=== PATIENT | female | born 1975 | race Two or more races ===

== ENCOUNTER 2024-03-13 02:50 | Emergency (ER) | payer OTHER ==
[~2024-03-13] VITALS: Ht 154.9 cm; Wt 141.0 kg
[2024-03-13 03:33] LABS: Basophils # (auto) 0.1 10 ^3/uL (0-0.2); Eosinophils # (auto) 0.1 10 ^3/uL (0-0.8); Eosinophils % (auto) 1.2 % (0.0-7.0); Monocytes # (auto) 0.7 10 ^3/uL (0-1.3)
[2024-03-13 03:35] LABS: Basophils % (auto) 0.7 % (0.0-2.0); Hematocrit 44.9 % (36.0-46.0); Hemoglobin 16.2 g/dL (12.2-16.2); Lymphocytes # (auto) 2.4 10 ^3/uL (0.4-5.4); Lymphocytes % (auto) 29.6 % (10.0-50.0); Mean Corpuscular Hemoglobin 35.7 pg (28.0-32.0); Mean Corpuscular Hgb Conc. 36.2 g/dL (32.0-36.0); Mean Corpuscular Volume 98.8 fL (80.0-100.0); Monocytes % (auto) 8.8 % (0.0-12.0); Neutrophils # (auto) 4.8 10 ^3/uL (1.6-8.6); Neutrophils % (auto) 59.7 % (37.0-80.0); Nucleated Red Blood Cells % 0.1 %; Red Blood Cells 4.54 10^6/uL (4.0-5.20); Red Cell Distribution Width 12.8 % (11.8-14.3)
[2024-03-13 03:47] LABS: Alanine Aminotransferase 44 U/L (7-40); Albumin 4.5 g/dL (3.2-4.8); Alkaline Phosphatase 141 U/L (46-116); Anion Gap 7 (5-15); Aspartate Aminotransferase 37 U/L (13-40); Calcium 9.8 mg/dL (8.7-10.4); Carbon Dioxide 21 mmol/L (20-30); Chloride 92 mmol/L (98-107); Glucose 105 mg/dL (74-106); Magnesium 1.7 mg/dL (1.6-2.6); Sodium 120 mmol/L (136-145)
[2024-03-13 03:48] LABS: Bilirubin, Total 0.9 mg/dL (0.2-1.0); Total Protein 7.5 g/dL (5.7-8.2)
[2024-03-13 03:55] LABS: Amphetamine Screen, Urine Neg (NEGATIVE); Barbiturate Scree,Urine Neg (NEGATIVE); Benzodiazephine Screen, Urine Neg (NEGATIVE); Cannabinoid Screen, Urine Neg (NEGATIVE); Cocaine Screen, Urine Neg (NEGATIVE); Opiate Scree,Urine Neg (NEGATIVE); Phencyclidine Screen, Urine Neg (NEGATIVE)
[2024-03-13 04:06] LABS: Urine Bacteria FEW /hpf (None Seen); Urine Blood TRACE /uL (Negative); Urine Clarity Clear (Clear); Urine Color Colorless (Yellow); Urine Protein, UAD Negative (Negative); Urine Specific Gravity 1.003 (1.001-1.035); Urine Urobilinogen Normal (Negative); Urine WBC 1 /hpf (0 - 5); Urine pH 6.5 (5.0-9.0)
[2024-03-13 04:06] LABS: BUN/Creatinine Ratio 12.2 (10.0-20.0); Blood Urea Nitrogen < 5 mg/dL (9-23)
[2024-03-13 04:15] LABS: INR 1.08 (0.9-1.15); Prothrombin Time 11.4 sec (9.3-11.8)
[2024-03-13] MEDS: chlordiazePOXIDE HCL 25 MG CAP PO ONE ×2 (05:01→13:26)
[2024-03-13] MEDS: LORazepam 0.5 MG TAB PO ONE (05:03)
[2024-03-13] MEDS: SODIUM CHLORIDE 0.9% 1,000 ML IV ONE ×2 (05:47→10:13)
[2024-03-13 05:57] VITALS: PULSE 95; RESP 20; O2SAT 98
[2024-03-13 07:45] VITALS: PULSE 90; RESP 16; O2SAT 95
[2024-03-13 08:00] VITALS: TEMP 98
[2024-03-13 12:33] LABS: Chloride 94 mmol/L (98-107); Potassium 4.3 mmol/L (3.5-5.1); Sodium 124 mmol/L (136-145)
[2024-03-13 12:34] LABS: Anion Gap 7 (5-15); Carbon Dioxide 23 mmol/L (20-30)
[2024-03-13 12:39] LABS: Glucose 111 mg/dL (74-106)
[2024-03-13 12:44] LABS: BUN/Creatinine Ratio 11.6 (10.0-20.0); Blood Urea Nitrogen < 5 mg/dL (9-23)
[2024-03-13] MEDS: SODIUM CHLORIDE 0.9% 250 ML IV ONE (13:20)
[2024-03-13 15:00] VITALS: BP 147/55; PULSE 85; RESP 16; O2SAT 91
== END 2024-03-13 15:24 | disposition home or self-care (01) ==
LOC: ER 02:50
DX: F10.239 Alcohol dependence with withdrawal, unspecified (principal); I10 Essential (primary) hypertension; Z98.890 Other specified postprocedural states
CPT/HCPCS: 36415; 71045; 80048; 80053; 80307; 81001; 83735; 84484; 85025; 85610; 85730; 93005; 96360; 96361; 99285; J7030; J7050

== ENCOUNTER 2024-04-15 14:13 | Inpatient (IN) | payer OTHER ==
[~2024-04-15] VITALS: Ht 154.9 cm; Wt 118.3 kg
[2024-04-15] MEDS: SODIUM CHLORIDE 0.9% 1,000 ML IV ONE ×3 (16:01→21:48)
[2024-04-15 16:47] LABS: Hematocrit 39.8 % (36.0-46.0); Hemoglobin 14.4 g/dL (12.2-16.2); Mean Corpuscular Hemoglobin 35.1 pg (28.0-32.0); Mean Corpuscular Hgb Conc. 36.1 g/dL (32.0-36.0); Mean Corpuscular Volume 97.2 fL (80.0-100.0); Platelet Count (auto) 177 10^3/uL (140-450); Red Cell Distribution Width 12.4 % (11.8-14.3); White Blood Cell 22.4 10^3/uL (4.4-10.8)
[2024-04-15 16:50] LABS: Basophils % (manual) 0 (0.0-2.0); Blast Cells 0; Eosinophils % (manual) 0 (0-7); Promyelocytes % 0; Reactive Lymphocytes 0
[2024-04-15 16:53] LABS: Chloride 89 mmol/L (98-107); Potassium 4.1 mmol/L (3.5-5.1); Sodium 121 mmol/L (136-145)
[2024-04-15 16:54] LABS: Anion Gap 10 (5-15); Calcium 9.2 mg/dL (8.7-10.4); Carbon Dioxide 22 mmol/L (20-30)
[2024-04-15 16:59] LABS: BUN/Creatinine Ratio 9.2 (10.0-20.0); Blood Urea Nitrogen 11 mg/dL (9-23); Glucose 82 mg/dL (74-106)
[2024-04-15] MEDS: ONDANSETRON ODT 4 MG TAB PO ONE (17:33)
[2024-04-15] MEDS: cefTRIAXone 2GM/50ML D5W 50 ML IV ONE (18:06)
[2024-04-15 18:11] VITALS: PULSE 110; RESP 16; O2SAT 96
[2024-04-15 18:23] LABS: Band Neutrophils % (manual) 18; Lymphocytes % (manual) 5 (10.0-50.0); Metamyelocytes % 3; Monocytes % (manual) 8 (0-12); Myelocytes % 2
[2024-04-15 18:24] LABS: Platelet Estimate Adequate
[2024-04-15] MEDS: MORPHINE SULFATE 4 MG/ML SYR/VIAL IV ONE (18:24)
[2024-04-15 20:00] VITALS: PULSE 95; RESP 19; O2SAT 95
[2024-04-15] MEDS ORDERED: NITROGLYCERIN 0.4 MG SL TAB SL PRN (20:15)
[2024-04-15] MEDS ORDERED: VANCOMYCIN PER PHARMACY 0 MG IV SCH (20:15)
[2024-04-15] MEDS ORDERED: VANCOMYCIN 1GM/200ML 200 ML IV ONE (20:30)
[2024-04-15] MEDS ORDERED: VANCOMYCIN 1GM/200ML 200 ML IV SCH (20:52)
[2024-04-15] MEDS: PIPERACILLIN-TAZOB 3.375GM 100 ML IV ONE (21:06)
[2024-04-15] MEDS: VANCOMYCIN 1GM/200ML 200 ML IV ONE (21:39)
[2024-04-15] MEDS: ONDANSETRON HCL 4 MG/2 ML VIAL IV PRN (21:47)
[2024-04-15 22:51] LABS: Urine Bacteria None Seen /hpf (None Seen)
[2024-04-15 23:06] VITALS: PULSE 17; RESP 17; O2SAT 95
[2024-04-15 23:14] LABS: Urine Blood Negative /uL (Negative); Urine Clarity Turbid (Clear); Urine Color Yellow (Yellow); Urine Mucus FEW (None Seen); Urine Protein, UAD 1+ (Negative); Urine Specific Gravity 1.012 (1.001-1.035); Urine Urobilinogen Normal (Negative); Urine WBC 25 /hpf (0 - 5); Urine pH 5.5 (5.0-9.0)
[2024-04-16] VITALS (8 sets, daily range): BP systolic 88–109; BP diastolic 45–65; PULSE 68–111; RESP 12–22; TEMP 97.6–98.7; O2SAT 94–99
[2024-04-16] MEDS: HYDROcodone-ACET 5/325MG TAB PO ONE (01:55)
[2024-04-16] MEDS ORDERED: VALS1TAB58 PO (02:58)
[2024-04-16] MEDS ORDERED: CITA-73 PO (02:58)
[2024-04-16] MEDS: PIPERACILLIN-TAZOB 3.375GM 100 ML IV SCH (05:13)
[2024-04-16 05:59] LABS: Basophils # (auto) 0 10 ^3/uL (0-0.2); Hematocrit 37.5 % (36.0-46.0); Hemoglobin 13.5 g/dL (12.2-16.2); Monocytes # (auto) 0.6 10 ^3/uL (0-1.3); White Blood Cell 14.2 10^3/uL (4.4-10.8)
[2024-04-16 06:01] LABS: Basophils % (auto) 0.2 % (0.0-2.0); Eosinophils # (auto) 0.1 10 ^3/uL (0-0.8); Eosinophils % (auto) 0.6 % (0.0-7.0); Lymphocytes # (auto) 0.7 10 ^3/uL (0.4-5.4); Lymphocytes % (auto) 4.7 % (10.0-50.0); Mean Corpuscular Hemoglobin 35.4 pg (28.0-32.0); Mean Corpuscular Hgb Conc. 35.8 g/dL (32.0-36.0); Mean Corpuscular Volume 98.8 fL (80.0-100.0); Monocytes % (auto) 4.5 % (0.0-12.0); Neutrophils # (auto) 12.8 10 ^3/uL (1.6-8.6); Platelet Count (auto) 129 10^3/uL (140-450); Red Cell Distribution Width 12.6 % (11.8-14.3)
[2024-04-16 06:02] LABS: INR 1.3 (0.9-1.15); Prothrombin Time 13.5 sec (9.3-11.8)
[2024-04-16 06:14] LABS: Alanine Aminotransferase 22 U/L (7-40); Alkaline Phosphatase 84 U/L (46-116); Anion Gap 13 (5-15); BUN/Creatinine Ratio 12.8 (10.0-20.0); Blood Urea Nitrogen 19 mg/dL (9-23); Calcium 8.5 mg/dL (8.7-10.4); Carbon Dioxide 17 mmol/L (20-30); Chloride 92 mmol/L (98-107); Glucose 91 mg/dL (74-106); Potassium 3.8 mmol/L (3.5-5.1); Sodium 122 mmol/L (136-145)
[2024-04-16 06:15] LABS: Albumin 3.5 g/dL (3.2-4.8); Aspartate Aminotransferase 21 U/L (13-40); Bilirubin, Total 0.8 mg/dL (0.2-1.0); Total Protein 6.1 g/dL (5.7-8.2)
[2024-04-16] MEDS: SODIUM CHLORIDE 0.9% 1,000 ML IV ONE ×2 (09:50→14:15)
[2024-04-16] MEDS: VANCOMYCIN 1GM/200ML 200 ML IV SCH (09:51)
[2024-04-16] MEDS: SODIUM CHLORIDE 0.9% 1,000 ML IV SCH (13:08)
[2024-04-16] MEDS ORDERED: LEVO500T91 PO (14:08)
[2024-04-16] MEDS ORDERED: METR-344 PO (14:08)
[2024-04-16] MEDS: MORPHINE SULFATE INJ 2 MG/ml SYRG IV PRN ×2 (14:08→20:25)
[2024-04-17] VITALS (8 sets, daily range): BP systolic 86–109; BP diastolic 44–70; PULSE 64–111; RESP 14–21; TEMP 97.5–98.5; O2SAT 91–100
[2024-04-17] MEDS: HYDROcodone-ACET 10/325MG TAB PO PRN (00:45)
[2024-04-17 09:26] LABS: Hepatitis B Surface Antigen Negative (Negative)
[2024-04-17 09:35] LABS: Hemoglobin 12.4 g/dL (12.2-16.2)
[2024-04-17 09:40] LABS: Hematocrit 35.4 % (36.0-46.0); Mean Corpuscular Hemoglobin 35.4 pg (28.0-32.0); Mean Corpuscular Hgb Conc. 35.2 g/dL (32.0-36.0); Mean Corpuscular Volume 100.6 fL (80.0-100.0); Platelet Count (auto) 88 10^3/uL (140-450); Red Blood Cells 3.51 10^6/uL (4.0-5.20); Red Cell Distribution Width 12.8 % (11.8-14.3); White Blood Cell 15.9 10^3/uL (4.4-10.8)
[2024-04-17 09:47] LABS: Hepatitis C Antibody Negative (Negative)
[2024-04-17 10:02] LABS: Basophils % (manual) 0 (0.0-2.0); Blast Cells 0; Metamyelocytes % 0; Myelocytes % 0; Promyelocytes % 0; Reactive Lymphocytes 0
[2024-04-17 10:07] LABS: Anion Gap 12 (5-15); Calcium 8.6 mg/dL (8.7-10.4); Carbon Dioxide 19 mmol/L (20-30); Chloride 92 mmol/L (98-107); Potassium 4.2 mmol/L (3.5-5.1); Sodium 123 mmol/L (136-145)
[2024-04-17 10:12] LABS: BUN/Creatinine Ratio 16.3 (10.0-20.0); Glucose 92 mg/dL (74-106)
[2024-04-17 10:31] LABS: Blood Urea Nitrogen 42 mg/dL (9-23)
[2024-04-17] MEDS: ACETAMINOPHEN 325 MG TAB PO ONE (11:47)
[2024-04-17] MEDS: SODIUM CHLORIDE 0.9% 2,000 ML IV ONE (11:48)
[2024-04-17 11:59] LABS: Band Neutrophils % (manual) 19; Eosinophils % (manual) 1 (0-7); Lymphocytes % (manual) 4 (10.0-50.0); Macrocytosis Slight; Monocytes % (manual) 4 (0-12); Platelet Estimate Decreased
[2024-04-17] MEDS: SODIUM CHLORIDE 0.9% 1,000 ML IV ONE (13:30)
[2024-04-17 15:38] LABS: Chloride 93 mmol/L (98-107); Potassium 4.2 mmol/L (3.5-5.1); Sodium 123 mmol/L (136-145)
[2024-04-17 15:39] LABS: Anion Gap 11 (5-15); Carbon Dioxide 19 mmol/L (20-30)
[2024-04-17 15:40] LABS: Calcium 8.5 mg/dL (8.7-10.4)
[2024-04-17 15:44] LABS: BUN/Creatinine Ratio 16.4 (10.0-20.0); Blood Urea Nitrogen 44 mg/dL (9-23); Glucose 92 mg/dL (74-106)
[2024-04-18] VITALS (35 sets, daily range): BP systolic 98–129; BP diastolic 41–67; PULSE 80–105; RESP 15–33; TEMP 97.5–99.3; O2SAT 92–100
[2024-04-18] MEDS: PIPERACILLIN-TAZOB 3.375GM 100 ML IV SCH (01:00)
[2024-04-18] MEDS: MORPHINE SULFATE INJ 2 MG/ml SYRG IV PRN (05:07)
[2024-04-18 06:40] LABS: Anion Gap 16 (5-15); Carbon Dioxide 16 mmol/L (20-30); Chloride 91 mmol/L (98-107); Potassium 4.2 mmol/L (3.5-5.1); Sodium 123 mmol/L (136-145)
[2024-04-18 06:46] LABS: BUN/Creatinine Ratio 15.2 (10.0-20.0); Blood Urea Nitrogen 53 mg/dL (9-23); Glucose 77 mg/dL (74-106)
[2024-04-18 07:02] LABS: Hemoglobin 12.4 g/dL (12.2-16.2); Red Blood Cells 3.53 10^6/uL (4.0-5.20)
[2024-04-18 07:04] LABS: Hematocrit 35.4 % (36.0-46.0); Mean Corpuscular Hemoglobin 35.1 pg (28.0-32.0); Mean Corpuscular Volume 100.2 fL (80.0-100.0); Platelet Count (auto) 92 10^3/uL (140-450); Red Cell Distribution Width 12.9 % (11.8-14.3); White Blood Cell 24.4 10^3/uL (4.4-10.8)
[2024-04-18 07:13] LABS: Basophils % (manual) 0 (0.0-2.0); Myelocytes % 0
[2024-04-18 07:14] LABS: Blast Cells 0; Promyelocytes % 0; Reactive Lymphocytes 0
[2024-04-18 08:19] LABS: Band Neutrophils % (manual) 14; Eosinophils % (manual) 1 (0-7); Lymphocytes % (manual) 4 (10.0-50.0); Metamyelocytes % 1; Monocytes % (manual) 4 (0-12)
[2024-04-18 08:20] LABS: Macrocytosis Slight; Platelet Estimate Decreased
[2024-04-18] MEDS ORDERED: fentaNYL CITRATE 100 MCG/2 ML VL ONE (09:13)
[2024-04-18] MEDS ORDERED: KETAMINE 50mg/ML 1ml syringe ONE (09:13)
[2024-04-18] MEDS ORDERED: MEPERIDINE HCL (50 MG/ML) 1 ML VIAL ONE (09:13)
[2024-04-18] MEDS ORDERED: MIDAZOLAM HCL 2MG/2ML 2ml VIAL (1mg/ml) ONE (09:13)
[2024-04-18] MEDS ORDERED: LIDOCAINE HCL 2% TOP JELLY 5ML TOP ONE (09:14)
[2024-04-18] MEDS ORDERED: DexAMETHasone SOD PHOS 10MG/1ML VIAL INJ ONE (09:14)
[2024-04-18] MEDS ORDERED: PROPOFOL 10 MG/ML 20 ML IV ONE (09:14)
[2024-04-18] MEDS ORDERED: LIDOCAINE 1% INJ PF 5ML AMP ONE (09:14)
[2024-04-18] MEDS ORDERED: ONDANSETRON HCL 4 MG/2 ML VIAL ONE (09:14)
[2024-04-18] MEDS ORDERED: ROCURONIUM 10MG/ML 10ML VIAL IV ONE (09:14)
[2024-04-18] MEDS ORDERED: HYDROmorphone HCL 2 MG/ML VL/or syr IV PRN ×2 (09:30)
[2024-04-18] MEDS: METOCLOPRAMIDE HCL 5MG/ml INJ 2ml VIAL IV ONE (09:30)
[2024-04-18] MEDS ORDERED: fentaNYL CITRATE 100 MCG/2 ML VL IV PRN (09:30)
[2024-04-18] MEDS ORDERED: MORPHINE SULFATE INJ 2 MG/ml SYRG IV PRN (09:30)
[2024-04-18] MEDS: KETOROLAC TROMETH 30 MG/ML 1ML VIAL IV ONE (09:30)
[2024-04-18] MEDS: LIDOCAINE W/ EPINEPHRINE 1% 20ML VIAL ONE (09:36)
[2024-04-18] MEDS: BUPIVACAINE 0.25% INJ 50ML VIAL ONE (09:36)
[2024-04-18] MEDS: ACCU-CHEK COMFORT CURVE STRIP VI ONE (11:15)
[2024-04-18] MEDS: SUCCINYLCHOLINE CHLORIDE 20 MG/ML 10ML VIAL IV ONE (11:19)
[2024-04-18] MEDS ORDERED: ALBUTEROL SULF 2.5 MG/0.5ML(0.5%) NEB SOLN NEB ONE (12:00)
[2024-04-18] MEDS ORDERED: IPRATROPIUM BROM 0.5 MG/2.5ML INH SOL NEB ONE (12:00)
[2024-04-18] MEDS: ACETAMINOPHEN IV 100 ML IV ONE (12:03)
[2024-04-18] MEDS: ACETAMINOPHEN IV 1000 MG/100ML (10MG/ML) IV ONE (12:10)
[2024-04-18] MEDS: NOREPINEPHRINE 8 MG/250ML KIT 250 ML IV ONE (12:40)
[2024-04-18] MEDS: NOREPINEPHRINE 8 MG/250ML KIT 250 ML IV SCH (12:40)
[2024-04-18] MEDS ORDERED: FOLIC ACID 1 MG in D5W 5% 50 ML INJ SCH (12:45)
[2024-04-18 13:27] LABS: Base Excess -17.1 mmol/L (-2.0-2.0)
[2024-04-18] MEDS: SODIUM BICARB 8.4% 50Meq/50ml SYR Vial IV ONE ×6 (13:35→18:06)
[2024-04-18] MEDS: AMIODARONE BOLUS KIT 100 ML IV ONE ×2 (13:46→13:57)
[2024-04-18] MEDS: AMIODARONE 450mg/250ml AE 250 ML IV ONE (13:47)
[2024-04-18] MEDS: AMIODARONE 450mg/250ml AE 250 ML IV SCH (14:07)
[2024-04-18] MEDS: BUMETANIDE 2.5mg/10ml (0.25 mg/ml) INJ IV ONE (14:22)
[2024-04-18] MEDS: PHENYLEPHRINE INJ 80 MG in SODIUM CHL 0.9% 242 ML IV SCH (15:10)
[2024-04-18 16:27] LABS: Base Excess -12.1 mmol/L (-2.0-2.0)
[2024-04-18] MEDS: AMIODARONE HCL 200 MG TAB PO ONE (16:37)
[2024-04-18 16:49] LABS: Triglycerides 227 mg/dL (< 150)
[2024-04-18 16:50] LABS: LDL Cholesterol 36 mg/dL (< 100); Magnesium 1.5 mg/dL (1.6-2.6)
[2024-04-18 16:51] LABS: Cholesterol 91 mg/dL (< 200); HDL Cholesterol < 5 mg/dL (40-59); Phosphorus 4.7 mg/dL (2.4-5.1)
[2024-04-18] MEDS: BUMETANIDE 2.5mg/10ml (0.25 mg/ml) INJ IV SCH (18:07)
[2024-04-18 18:24] LABS: Free T3 0.98 pg/mL (2.3-4.2); Free T4 (Free Thyroxine) 0.78 ng/dL (0.89-1.76)
[2024-04-18] MEDS: MAGNESIUM SULFATE 1GM/100ML 100 ML IV SCH (18:30)
[2024-04-18] MEDS: MAGNESIUM SULFATE 1GM/100ML 100 ML IV ONE (19:47)
[2024-04-18] MEDS ORDERED: AMIODARONE 450mg/250ml AE 250 ML IV SCH (20:00)
[2024-04-18] MEDS: FOLIC ACID 1 MG, MAGNESIUM SULF SDV 50% 8 MEQ, MULTIPLE VITAMIN 10 ML, THIAMINE INJ 100... INJ SCH (20:09)
[2024-04-18] MEDS: AMIODARONE HCL 200 MG TAB PO SCH (22:00)
[2024-04-18] MEDS: ATORVASTATIN 20 MG TAB PO SCH (22:00)
[2024-04-18 22:12] LABS: Base Excess -11.4 mmol/L (-2.0-2.0)
[2024-04-18 22:48] LABS: Chloride 95 mmol/L (98-107); Potassium 2.7 mmol/L (3.5-5.1)
[2024-04-18 22:49] LABS: Anion Gap 15 (5-15); Calcium 8.7 mg/dL (8.7-10.4); Carbon Dioxide 18 mmol/L (20-30)
[2024-04-18 22:54] LABS: BUN/Creatinine Ratio 16.8 (10.0-20.0); Blood Urea Nitrogen 54 mg/dL (9-23); Glucose 144 mg/dL (74-106)
[2024-04-18 22:59] LABS: Sodium 128 mmol/L (136-145)
[2024-04-19] VITALS (98 sets, daily range): BP systolic 84–138; BP diastolic 26–84; PULSE 78–106; RESP 12–36; TEMP 97–100; O2SAT 94–99
[2024-04-19] MEDS: POTASSIUM CHL 20MEQ/100ML 100 ML IV SCH ×2 (00:25→13:32)
[2024-04-19 04:03] LABS: Hematocrit 38.3 % (36.0-46.0); Hemoglobin 13.2 g/dL (12.2-16.2); Mean Corpuscular Hgb Conc. 34.4 g/dL (32.0-36.0); Mean Corpuscular Volume 101.8 fL (80.0-100.0); Platelet Count (auto) 91 10^3/uL (140-450); Red Blood Cells 3.76 10^6/uL (4.0-5.20); Red Cell Distribution Width 13.3 % (11.8-14.3); White Blood Cell 25.9 10^3/uL (4.4-10.8)
[2024-04-19 04:08] LABS: Basophils % (manual) 0 (0.0-2.0); Blast Cells 0; Eosinophils % (manual) 0 (0-7); Promyelocytes % 0; Reactive Lymphocytes 0
[2024-04-19] MEDS: LORazepam 2MG/ML-1ML VIAL ONE (04:10)
[2024-04-19] MEDS: LORazepam 2MG/ML-1ML VIAL IV PRN (04:11)
[2024-04-19 04:15] LABS: Chloride 97 mmol/L (98-107); Potassium 3.1 mmol/L (3.5-5.1); Sodium 128 mmol/L (136-145)
[2024-04-19 04:16] LABS: Anion Gap 14 (5-15); Calcium 8.6 mg/dL (8.7-10.4); Carbon Dioxide 17 mmol/L (20-30)
[2024-04-19 04:21] LABS: BUN/Creatinine Ratio 16.7 (10.0-20.0); Blood Urea Nitrogen 47 mg/dL (9-23); Glucose 136 mg/dL (74-106)
[2024-04-19 04:22] LABS: Base Excess -10.1 mmol/L (-2.0-2.0)
[2024-04-19 04:36] LABS: Band Neutrophils % (manual) 9; Lymphocytes % (manual) 9 (10.0-50.0); Macrocytosis Slight; Metamyelocytes % 2; Monocytes % (manual) 9 (0-12); Myelocytes % 1; Platelet Estimate Decreased
[2024-04-19] MEDS: ERGOCALCIFEROL 50,000 UNIT(1.25MG) CAP PO SCH (08:15)
[2024-04-19] MEDS ORDERED: THIAMINE 100mg/ml INJ (200mg/2ml VIAL) IV SCH (10:00)
[2024-04-19 10:05] LABS: Chloride 99 mmol/L (98-107); Potassium 3.4 mmol/L (3.5-5.1); Sodium 131 mmol/L (136-145)
[2024-04-19 10:06] LABS: Anion Gap 12 (5-15); Calcium 8.8 mg/dL (8.7-10.4); Carbon Dioxide 20 mmol/L (20-30)
[2024-04-19 10:11] LABS: BUN/Creatinine Ratio 22.2 (10.0-20.0); Blood Urea Nitrogen 52 mg/dL (9-23); Glucose 128 mg/dL (74-106)
[2024-04-19] MEDS: POTASSIUM CHL 20MEQ/100ML 100 ML IV ONE (10:49)
[2024-04-19] MEDS: SODIUM BICARB 8.4% 50Meq/50ml SYR Vial IV ONE (11:31)
[2024-04-19 22:11] LABS: Chloride 104 mmol/L (98-107); Potassium 3.6 mmol/L (3.5-5.1)
[2024-04-19 22:12] LABS: Anion Gap 9 (5-15); Calcium 8.8 mg/dL (8.7-10.4); Carbon Dioxide 23 mmol/L (20-30)
[2024-04-19 22:17] LABS: BUN/Creatinine Ratio 26.8 (10.0-20.0); Blood Urea Nitrogen 42 mg/dL (9-23); Glucose 127 mg/dL (74-106); Sodium 136 mmol/L (136-145)
[2024-04-19] MEDS: PIPERACILLIN-TAZOB 3.375GM 100 ML IV SCH (23:21)
[2024-04-20] VITALS (78 sets, daily range): BP systolic 92–160; BP diastolic 33–90; PULSE 77–100; RESP 11–29; TEMP 97.9–98.2; O2SAT 94–100
[2024-04-20 04:26] LABS: Hemoglobin 11.8 g/dL (12.2-16.2); Platelet Count (auto) 128 10^3/uL (140-450)
[2024-04-20 04:29] LABS: Hematocrit 33.3 % (36.0-46.0); Mean Corpuscular Hgb Conc. 35.4 g/dL (32.0-36.0); Red Blood Cells 3.36 10^6/uL (4.0-5.20); Red Cell Distribution Width 13.6 % (11.8-14.3); White Blood Cell 14.7 10^3/uL (4.4-10.8)
[2024-04-20 04:34] LABS: Basophils % (manual) 0 (0.0-2.0); Blast Cells 0; Eosinophils % (manual) 0 (0-7); Promyelocytes % 0; Reactive Lymphocytes 0
[2024-04-20 04:42] LABS: Anion Gap 8 (5-15); Carbon Dioxide 25 mmol/L (20-30); Chloride 104 mmol/L (98-107); Sodium 137 mmol/L (136-145)
[2024-04-20 04:44] LABS: Calcium 8.7 mg/dL (8.7-10.4)
[2024-04-20 04:48] LABS: BUN/Creatinine Ratio 31.8 (10.0-20.0); Blood Urea Nitrogen 42 mg/dL (9-23); Glucose 135 mg/dL (74-106)
[2024-04-20 04:52] LABS: Band Neutrophils % (manual) 10; Lymphocytes % (manual) 18 (10.0-50.0); Metamyelocytes % 1; Monocytes % (manual) 10 (0-12); Myelocytes % 1; Platelet Estimate Decreased
[2024-04-20] MEDS: POTASSIUM CHL 20MEQ/100ML 100 ML IV SCH (05:38)
[2024-04-20] MEDS: POTASSIUM CHL 20MEQ/100ML 100 ML IV ONE (07:00)
[2024-04-20 10:41] LABS: Chloride 103 mmol/L (98-107); Potassium 3.7 mmol/L (3.5-5.1); Sodium 136 mmol/L (136-145)
[2024-04-20 10:42] LABS: Anion Gap 5 (5-15); Carbon Dioxide 28 mmol/L (20-30)
[2024-04-20 10:47] LABS: BUN/Creatinine Ratio 34.9 (10.0-20.0); Blood Urea Nitrogen 37 mg/dL (9-23); Glucose 122 mg/dL (74-106)
[2024-04-20] MEDS: CITALOPRAM HYDROBR 20 MG TAB PO SCH (18:16)
[2024-04-20] MEDS: ALBUTEROL SULF 2.5 MG/0.5ML(0.5%) NEB SOLN ONE ×2 (22:42→22:43)
[2024-04-20] MEDS: IPRATROPIUM BROM 0.5 MG/2.5ML INH SOL ONE (22:42)
[2024-04-21] VITALS (29 sets, daily range): BP systolic 99–144; BP diastolic 41–74; PULSE 74–92; RESP 14–24; TEMP 97.7–98.5; O2SAT 92–100
[2024-04-21 05:54] LABS: Hemoglobin 11.3 g/dL (12.2-16.2); Red Blood Cells 3.31 10^6/uL (4.0-5.20); White Blood Cell 12.8 10^3/uL (4.4-10.8)
[2024-04-21 05:55] LABS: Hematocrit 32.9 % (36.0-46.0); Mean Corpuscular Hemoglobin 34.2 pg (28.0-32.0); Mean Corpuscular Hgb Conc. 34.4 g/dL (32.0-36.0); Mean Corpuscular Volume 99.3 fL (80.0-100.0); Platelet Count (auto) 155 10^3/uL (140-450); Red Cell Distribution Width 13.8 % (11.8-14.3)
[2024-04-21 06:05] LABS: Basophils % (manual) 0 (0.0-2.0); Blast Cells 0; Eosinophils % (manual) 0 (0-7); Metamyelocytes % 0; Myelocytes % 0; Promyelocytes % 0; Reactive Lymphocytes 0
[2024-04-21 06:15] LABS: Chloride 104 mmol/L (98-107); Potassium 3.7 mmol/L (3.5-5.1); Sodium 136 mmol/L (136-145)
[2024-04-21 06:16] LABS: Anion Gap 2 (5-15); Calcium 8.6 mg/dL (8.7-10.4); Carbon Dioxide 30 mmol/L (20-30)
[2024-04-21 06:21] LABS: BUN/Creatinine Ratio 41.1 (10.0-20.0); Blood Urea Nitrogen 23 mg/dL (9-23); Glucose 100 mg/dL (74-106); Magnesium 1.8 mg/dL (1.6-2.6)
[2024-04-21 08:04] LABS: Band Neutrophils % (manual) 7; Lymphocytes % (manual) 13 (10.0-50.0); Monocytes % (manual) 9 (0-12)
[2024-04-21 08:05] LABS: Platelet Estimate Adequate; RBC Morphology Normal
[2024-04-21] MEDS: BUMETANIDE 2.5mg/10ml (0.25 mg/ml) INJ IV SCH (09:43)
[2024-04-21] MEDS: FOLIC ACID 1 MG TAB PO ONE (18:07)
[2024-04-21] MEDS: THIAMINE HCL 100 MG TAB PO ONE (18:07)
[2024-04-21] MEDS: MULTIPLE VITAMINS W/ MINERALS TAB PO ONE (18:07)
[2024-04-21] MEDS: ENOXAPARIN SOD 40 MG/0.4 ML SYRINGE SC ONE (18:07)
[2024-04-21] MEDS: MAGNESIUM OXIDE 400 MG TAB PO ONE (18:08)
[2024-04-22] VITALS (12 sets, daily range): BP systolic 107–126; BP diastolic 48–62; PULSE 65–87; RESP 17–20; TEMP 97.1–98.1; O2SAT 92–100
[2024-04-22] MEDS ORDERED: POTASSIUM CHL 20MEQ/100ML 100 ML IV ONE (08:00)
[2024-04-22 08:13] LABS: Hematocrit 34.5 % (36.0-46.0); Hemoglobin 11.6 g/dL (12.2-16.2); Mean Corpuscular Hemoglobin 33.7 pg (28.0-32.0); Mean Corpuscular Hgb Conc. 33.5 g/dL (32.0-36.0); Mean Corpuscular Volume 100.5 fL (80.0-100.0); Platelet Count (auto) 196 10^3/uL (140-450); Red Blood Cells 3.44 10^6/uL (4.0-5.20); Red Cell Distribution Width 13.2 % (11.8-14.3)
[2024-04-22 08:23] LABS: Basophils % (manual) 0 (0.0-2.0); Blast Cells 0; Metamyelocytes % 0; Myelocytes % 0; Promyelocytes % 0; Reactive Lymphocytes 0
[2024-04-22 08:28] LABS: Chloride 100 mmol/L (98-107); Potassium 3.6 mmol/L (3.5-5.1); Sodium 133 mmol/L (136-145)
[2024-04-22 08:29] LABS: Anion Gap 3 (5-15); Calcium 8.6 mg/dL (8.7-10.4); Carbon Dioxide 30 mmol/L (20-30)
[2024-04-22 08:34] LABS: BUN/Creatinine Ratio 32.1 (10.0-20.0); Blood Urea Nitrogen 17 mg/dL (9-23); Glucose 92 mg/dL (74-106)
[2024-04-22] MEDS: MULTIPLE VITAMINS W/ MINERALS TAB PO SCH (09:08)
[2024-04-22] MEDS: FOLIC ACID 1 MG TAB PO SCH (09:09)
[2024-04-22] MEDS: BUMETANIDE 1 MG TAB PO SCH (09:10)
[2024-04-22] MEDS: THIAMINE HCL 100 MG TAB PO SCH (09:11)
[2024-04-22] MEDS: MAGNESIUM OXIDE 400 MG TAB PO SCH (09:11)
[2024-04-22] MEDS: ENOXAPARIN SOD 40 MG/0.4 ML SYRINGE SC SCH (09:14)
[2024-04-22 09:17] LABS: Band Neutrophils % (manual) 5; Eosinophils % (manual) 1 (0-7); Lymphocytes % (manual) 19 (10.0-50.0); Monocytes % (manual) 6 (0-12); Platelet Estimate Adequate
[2024-04-22] MEDS: MAGNESIUM SULFATE 1GM/100ML 100 ML IV ONE (12:41)
[2024-04-22] MEDS: CALCIUM GLUC 1,000mg/50ml-NS 50 ML IV ONE (16:44)
[2024-04-22] MEDS: POTASSIUM CHLORIDE 20 MEQ, LIDOCAINE 1% (LOCAL ANESTH.) 2 ML in SODIUM CHL 0.9% 100 ML IV ONE (17:25)
[2024-04-23] VITALS (11 sets, daily range): BP systolic 97–124; BP diastolic 41–68; PULSE 74–83; RESP 16–18; TEMP 98–98.2; O2SAT 92–98
[2024-04-23 07:17] LABS: Basophils # (auto) 0.1 10 ^3/uL (0-0.2); Eosinophils # (auto) 0.2 10 ^3/uL (0-0.8); Lymphocytes # (auto) 1.7 10 ^3/uL (0.4-5.4); Lymphocytes % (auto) 11.4 % (10.0-50.0); Monocytes # (auto) 0.7 10 ^3/uL (0-1.3); Neutrophils # (auto) 12.5 10 ^3/uL (1.6-8.6); Nucleated Red Blood Cells % 0.1 %; White Blood Cell 15.2 10^3/uL (4.4-10.8)
[2024-04-23 07:20] LABS: Basophils % (auto) 0.8 % (0.0-2.0); Eosinophils % (auto) 1.4 % (0.0-7.0); Hematocrit 34.3 % (36.0-46.0); Monocytes % (auto) 4.6 % (0.0-12.0); Neutrophils % (auto) 81.8 % (37.0-80.0); Platelet Count (auto) 272 10^3/uL (140-450); Red Blood Cells 3.43 10^6/uL (4.0-5.20); Red Cell Distribution Width 12.9 % (11.8-14.3)
[2024-04-23 07:47] LABS: Alanine Aminotransferase 20 U/L (7-40); Albumin 3.1 g/dL (3.2-4.8); Alkaline Phosphatase 203 U/L (46-116); Anion Gap 4 (5-15); Aspartate Aminotransferase 18 U/L (13-40); BUN/Creatinine Ratio 19.2 (10.0-20.0); Blood Urea Nitrogen 10 mg/dL (9-23); Calcium 8.9 mg/dL (8.7-10.4); Carbon Dioxide 28 mmol/L (20-30); Chloride 97 mmol/L (98-107); Glucose 94 mg/dL (74-106); Potassium 3.7 mmol/L (3.5-5.1); Sodium 129 mmol/L (136-145)
[2024-04-23 07:48] LABS: Bilirubin, Total 0.5 mg/dL (0.2-1.0)
[2024-04-23] MEDS ORDERED: AMIO200T13 PO (17:25)
[2024-04-23] MEDS ORDERED: ERGO1CAP23 PO (17:25)
[2024-04-23] MEDS ORDERED: MET25T PO (17:25)
[2024-04-23] MEDS ORDERED: CITA-77 PO (17:25)
[2024-04-23] MEDS ORDERED: ATOR20TA50 PO (17:25)
[2024-04-23] MEDS ORDERED: BUM1T PO (17:29)
[2024-04-23] MEDS ORDERED: HYDR-4798 PO (17:29)
[2024-04-23] MEDS ORDERED: LEVO750T40 PO (17:34)
[2024-04-23] MEDS ORDERED: APIX5TAB PO (17:35)
[2024-04-23] MEDS ORDERED: METR-344 PO (17:35)
[2024-04-23] MEDS: METOPROLOL TARTRATE 25 MG TAB PO SCH (21:52)
[2024-04-24] VITALS (10 sets, daily range): BP systolic 101–126; BP diastolic 47–71; PULSE 42–79; RESP 16–19; TEMP 97.7–98.8; O2SAT 92–96
[2024-04-24 09:30] LABS: Hematocrit 35.9 % (36.0-46.0); Hemoglobin 12.4 g/dL (12.2-16.2); Mean Corpuscular Hgb Conc. 34.5 g/dL (32.0-36.0); Mean Corpuscular Volume 98.6 fL (80.0-100.0); Platelet Count (auto) 307 10^3/uL (140-450); Red Blood Cells 3.64 10^6/uL (4.0-5.20); White Blood Cell 11.5 10^3/uL (4.4-10.8)
[2024-04-24 09:36] LABS: Chloride 95 mmol/L (98-107); Potassium 3.4 mmol/L (3.5-5.1); Sodium 129 mmol/L (136-145)
[2024-04-24 09:37] LABS: Anion Gap 1 (5-15); Calcium 8.9 mg/dL (8.7-10.4); Carbon Dioxide 33 mmol/L (20-30)
[2024-04-24 09:42] LABS: Blood Urea Nitrogen 8 mg/dL (9-23); Glucose 105 mg/dL (74-106)
[2024-04-24 09:57] LABS: Basophils % (manual) 0 (0.0-2.0); Blast Cells 0; Metamyelocytes % 0; Myelocytes % 0; Promyelocytes % 0; Reactive Lymphocytes 0
[2024-04-24 09:58] LABS: Band Neutrophils % (manual) 2; Eosinophils % (manual) 2 (0-7); Lymphocytes % (manual) 19 (10.0-50.0); Monocytes % (manual) 5 (0-12); Platelet Estimate Adequate; RBC Morphology Normal
[2024-04-24 13:34] LABS: Base Excess 3.7 mmol/L (-2.0-2.0)
[2024-04-24] MEDS: POTASSIUM EFFERVESENT TAB 25 MEQ PO ONE (15:05)
[2024-04-24] MEDS: APIXABAN 5 MG TAB PO SCH (23:12)
[2024-04-25] VITALS (8 sets, daily range): BP systolic 103–126; BP diastolic 48–71; PULSE 67–80; RESP 17–20; TEMP 97.6–98.5; O2SAT 94–99
[2024-04-25 10:31] LABS: Basophils # (auto) 0.1 10 ^3/uL (0-0.2); Eosinophils # (auto) 0.1 10 ^3/uL (0-0.8); Lymphocytes # (auto) 1.4 10 ^3/uL (0.4-5.4); Mean Corpuscular Volume 98.2 fL (80.0-100.0); Monocytes # (auto) 0.7 10 ^3/uL (0-1.3)
[2024-04-25 10:34] LABS: Basophils % (auto) 1.2 % (0.0-2.0); Eosinophils % (auto) 1.4 % (0.0-7.0); Hematocrit 34.6 % (36.0-46.0); Hemoglobin 12.2 g/dL (12.2-16.2); Lymphocytes % (auto) 17.2 % (10.0-50.0); Mean Corpuscular Hemoglobin 34.6 pg (28.0-32.0); Mean Corpuscular Hgb Conc. 35.2 g/dL (32.0-36.0); Monocytes % (auto) 8.4 % (0.0-12.0); Neutrophils # (auto) 5.9 10 ^3/uL (1.6-8.6); Neutrophils % (auto) 71.8 % (37.0-80.0); Platelet Count (auto) 321 10^3/uL (140-450); Red Blood Cells 3.53 10^6/uL (4.0-5.20); Red Cell Distribution Width 12.7 % (11.8-14.3); White Blood Cell 8.2 10^3/uL (4.4-10.8)
[2024-04-25 10:52] LABS: Anion Gap 0 (5-15); Carbon Dioxide 33 mmol/L (20-30); Chloride 96 mmol/L (98-107); Potassium 3.3 mmol/L (3.5-5.1); Sodium 129 mmol/L (136-145)
[2024-04-25 10:53] LABS: Calcium 8.6 mg/dL (8.7-10.4)
[2024-04-25 10:58] LABS: BUN/Creatinine Ratio 10.9 (10.0-20.0); Blood Urea Nitrogen 6 mg/dL (9-23); Glucose 109 mg/dL (74-106); Magnesium 1.5 mg/dL (1.6-2.6)
[2024-04-25] MEDS: POTASSIUM CHL 20 Meq TABLET PO ONE (12:35)
[2024-04-26 01:00] VITALS: BP 130/81; PULSE 64; RESP 20; TEMP 97.3; O2SAT 95
[2024-04-26] MEDS: HYDROcodone-ACET 10/325MG TAB PO PRN (03:59)
[2024-04-26 05:33] VITALS: BP 112/64; PULSE 61; RESP 18; TEMP 98; O2SAT 93
[2024-04-26 06:50] LABS: Basophils # (auto) 0.1 10 ^3/uL (0-0.2); Basophils % (auto) 0.9 % (0.0-2.0); Eosinophils # (auto) 0.1 10 ^3/uL (0-0.8); Eosinophils % (auto) 0.9 % (0.0-7.0); Hemoglobin 12.2 g/dL (12.2-16.2); Lymphocytes % (auto) 27.6 % (10.0-50.0); Mean Corpuscular Hemoglobin 34.7 pg (28.0-32.0); Mean Corpuscular Volume 99.1 fL (80.0-100.0); Monocytes # (auto) 0.6 10 ^3/uL (0-1.3); Monocytes % (auto) 8.8 % (0.0-12.0); Neutrophils # (auto) 4.5 10 ^3/uL (1.6-8.6); Neutrophils % (auto) 61.8 % (37.0-80.0); Nucleated Red Blood Cells % 0.3 %; Platelet Count (auto) 332 10^3/uL (140-450); Red Blood Cells 3.53 10^6/uL (4.0-5.20); Red Cell Distribution Width 13.1 % (11.8-14.3); White Blood Cell 7.2 10^3/uL (4.4-10.8)
[2024-04-26 06:58] LABS: Chloride 97 mmol/L (98-107); Potassium 3.5 mmol/L (3.5-5.1); Sodium 130 mmol/L (136-145)
[2024-04-26 06:59] LABS: Anion Gap 0 (5-15); Carbon Dioxide 33 mmol/L (20-30)
[2024-04-26 07:00] LABS: Calcium 8.7 mg/dL (8.7-10.4)
[2024-04-26 07:04] LABS: BUN/Creatinine Ratio 9.6 (10.0-20.0); Blood Urea Nitrogen < 5 mg/dL (9-23); Glucose 128 mg/dL (74-106)
[2024-04-26 08:00] VITALS: PULSE 65
[2024-04-26 09:00] VITALS: BP 129/88; PULSE 69; RESP 18; TEMP 98; O2SAT 95
[2024-04-26] MEDS: POTASSIUM CHL 10 Meq TABLET PO SCH (09:38)
[2024-04-26] MEDS: cefTRIAXone 2GM/50ML D5W 50 ML IV SCH (09:40)
[2024-04-26 13:00] VITALS: BP 110/59; PULSE 59; RESP 16; TEMP 97.9; O2SAT 92
[2024-04-26 17:00] VITALS: BP 120/65; PULSE 73; RESP 18; TEMP 98.7; O2SAT 98
== END 2024-04-26 18:06 | disposition home or self-care (01) | DRG 853 ==
LOC: ER 14:13 → WEST WING 20:16 → OVERFLOW 20:16 → WEST WING 23:59 → ICU WEST 04-18 15:48 → TELE-CENTR 04-21 21:59
PROVIDERS: ADMIT Internal Medicine; ATTEND Student in an Organized Health Care Education/Training Program
PROC: 02HV33Z Insertion of Infusion Device into Superior Vena Cava, Percutaneous Approach (ICD-10-PCS; 2024-04-18)
PROC: B548ZZA Ultrasonography of Superior Vena Cava, Guidance (ICD-10-PCS; 2024-04-18)
PROC: 5A09357 Assistance with Respiratory Ventilation, Less than 24 Consecutive Hours, Continuous Positive Airway Pressure (ICD-10-PCS; 2024-04-18)
PROC: 0D9P0ZZ Drainage of Rectum, Open Approach (ICD-10-PCS; principal; 2024-04-18 09:51)
PROC: 5A09357 Assistance with Respiratory Ventilation, Less than 24 Consecutive Hours, Continuous Positive Airway Pressure (ICD-10-PCS; 2024-04-19)
PROC: 5A09357 Assistance with Respiratory Ventilation, Less than 24 Consecutive Hours, Continuous Positive Airway Pressure (ICD-10-PCS; 2024-04-20)
PROC: 5A09357 Assistance with Respiratory Ventilation, Less than 24 Consecutive Hours, Continuous Positive Airway Pressure (ICD-10-PCS; 2024-04-21)
PROC: 5A09357 Assistance with Respiratory Ventilation, Less than 24 Consecutive Hours, Continuous Positive Airway Pressure (ICD-10-PCS; 2024-04-22)
PROC: 5A09357 Assistance with Respiratory Ventilation, Less than 24 Consecutive Hours, Continuous Positive Airway Pressure (ICD-10-PCS; 2024-04-23)
DX: A41.9 Sepsis, unspecified organism (principal); I50.33 Acute on chronic diastolic (congestive) heart failure; J96.01 Acute respiratory failure with hypoxia; R65.21 Severe sepsis with septic shock; E87.1 Hypo-osmolality and hyponatremia; L03.317 Cellulitis of buttock; D68.59 Other primary thrombophilia; N17.9 Acute kidney failure, unspecified; E87.20 Acidosis, unspecified; K61.2 Anorectal abscess; Z68.44 Body mass index [BMI] 60.0-69.9, adult; E66.01 Morbid (severe) obesity due to excess calories; D69.6 Thrombocytopenia, unspecified; I25.10 Atherosclerotic heart disease of native coronary artery without angina pectoris; E87.70 Fluid overload, unspecified; I11.0 Hypertensive heart disease with heart failure; E78.5 Hyperlipidemia, unspecified; G47.33 Obstructive sleep apnea (adult) (pediatric); F32.A Depression, unspecified; E87.6 Hypokalemia; E11.9 Type 2 diabetes mellitus without complications; T36.8X5A Adverse effect of other systemic antibiotics, initial encounter; K62.89 Other specified diseases of anus and rectum; I48.91 Unspecified atrial fibrillation; Z83.3 Family history of diabetes mellitus; Z82.49 Family history of ischemic heart disease and other diseases of the circulatory system; Z79.899 Other long term (current) drug therapy; Z79.84 Long term (current) use of oral hypoglycemic drugs; Z80.3 Family history of malignant neoplasm of breast; Z88.2 Allergy status to sulfonamides; Z98.891 History of uterine scar from previous surgery
CPT/HCPCS: 36415; 36600; 71045; 71250; 74176; 76775; 80048; 80053; 80061; 80202; 80320; 81001; 82306; 82607; 82805; 82962; 83036; 83605; 83615; 83735; 83880; 83930; 84100; 84439; 84443; 84481; 84550; 84702; 85007; 85025; 85027; 85610; 86803; 86850; 86900; 86901; 87040; 87070; 87075; 87081; 87205; 87340; 93005; 93306; 93926; 94660; 97110; 97116; 97163; 97530; G0378; J0131; J0330; J1100; J2001; J2250; J2405; J2543; J2704; J3480; J3490; J7060; Q0162